=== PATIENT | male | born 1970 | race Hispanic/Latino ===

== ENCOUNTER → 2021-01-01 | Outpatient (CLI) | payer SELFPAY | LOC: MRI 07:42 | PROVIDERS: ATTEND Family Medicine | DX: S80.01XD Contusion of right knee, subsequent encounter (principal) ==

== ENCOUNTER → 2021-02-05 | Day surgery (SDC) | payer OTHER ==
[~2021-02-05] MED LIST: ACETAMINOPHEN/CODEINE 300MG - 30MG TAB ONE; BUPIVACAINE 0.25% 30ML SDV ONE; SODIUM CHLORIDE 0.9% 50ML 100 ML ONE
[2021-02-05 11:30] VITALS: BP 119/81
== END | disposition home or self-care (01) ==
LOC: OR 06:43
PROVIDERS: ATTEND Specialist
DX: S83.221A Peripheral tear of medial meniscus, current injury, right knee, initial encounter (principal); M71.561 Other bursitis, not elsewhere classified, right knee; Z01.810 Encounter for preprocedural cardiovascular examination; Z01.812 Encounter for preprocedural laboratory examination; Z20.822 Contact with and (suspected) exposure to COVID-19
CPT/HCPCS: 29881; 93005; J0690; U0002

== ENCOUNTER 2021-03-12 15:00 | Outpatient (RCR) | payer OTHER | END 2021-03-13 | LOC: PT 15:00 | PROVIDERS: ATTEND Specialist | DX: S83.221D Peripheral tear of medial meniscus, current injury, right knee, subsequent encounter (principal); Z47.89 Encounter for other orthopedic aftercare; M62.81 Muscle weakness (generalized); M25.561 Pain in right knee; M25.661 Stiffness of right knee, not elsewhere classified ==

== ENCOUNTER 2021-03-14 15:12 | Outpatient (RCR) | payer OTHER | END 2021-04-13 | LOC: PT 15:12 | PROVIDERS: ATTEND Specialist | DX: S83.221D Peripheral tear of medial meniscus, current injury, right knee, subsequent encounter (principal); Z47.89 Encounter for other orthopedic aftercare; M62.81 Muscle weakness (generalized); M25.561 Pain in right knee; M25.661 Stiffness of right knee, not elsewhere classified | CPT/HCPCS: 97139 ==